=== PATIENT | female | born 1990 | race Caucasian/White ===

== ENCOUNTER 2019-06-21 11:18 | Observation (INO) ==
[2019-06-21 11:42] LABS: BASO# 0.02 X1000 (0.0-0.2); BASO% 0.4 % (0.0-0.8); EOS# 0.13 X1000 (0.0-0.7); EOS% 2.5 % (0.0-10.0); HEMATOCRIT 40.7 % (37.0-47.0); HEMOGLOBIN 14.5 g/dL (12.0-16.0); IMM GRAN# 0.01 X1000 (0.0-0.04); IMM GRAN% 0.2 % (0.0-0.5); LYMPH# 1.71 X1000 (1.2-3.4); LYMPH% 32.4 % (20.5-51.1); MCH 30.6 PG (27-31); MCHC 35.6 g/dL (33-37); MCV 85.9 FL (81-99); MONO# 0.51 X1000 (0.11-0.59); MONO% 9.7 % (1.7-9.3); MPV 9.5 FL (7.4-10.4); NEUT% 54.8 % (42.2-75.2); PLT 284 X1000 (130-400); RBC 4.74 XMIL (4.2-5.4); RDW 12.9 % (11.5-14.5); WBC 5.28 X1000 (4.8-10.8)
[2019-06-21 12:19] LABS: BILIRUBIN URINE NEGATIVE (NEGATIVE); BLOOD URINE NEGATIVE (NEGATIVE); CLARITY CLEAR (CLEAR); COLOR YELLOW; GLUCOSE URINE NEGATIVE (NEGATIVE); KETONE URINE NEGATIVE (NEGATIVE); LEUKOCYTES URINE NEGATIVE (NEGATIVE); NITRITE URINE NEGATIVE (NEGATIVE); PROTEIN URINE NEGATIVE (NEGATIVE); UROBILINOGEN URINE NORMAL
[2019-06-21 12:24] LABS: URINE EPITHELIAL CELLS >10 /HPF (<10); URINE SOURCE CLEAN CATCH; URINE WBC <10 /HPF (<10)
[2019-06-21 12:27] LABS: AGAP 12; ALBUMIN 4.5 g/dL (3.5-5.0); ALKALINE PHOSPHATASE 108 U/L (32-104); BUN 5 mg/dL (8-22); CALCIUM 8.9 mg/dL (8.8-10.2); CHLORIDE 102 mmol/L (98-107); COSMO 273; CREATININE 0.6 mg/dL (0.5-0.9); ESTIMATED GFR > 60; GLUCOSE 100 mg/dL (70-104); GOT 36 U/L (10-30); GPT 39 U/L (10-36); LIPASE 103 U/L (13-60); POTASSIUM 3.7 mmol/L (3.5-5.1); SODIUM 138 mmol/L (136-145); TCO2 24 mmol/L (25-35); TOTAL PROTEIN 7.5 g/dL (6.3-8.3)
[2019-06-21] MEDS ORDERED: ZOFRAN IV ONE (13:33)
[2019-06-21] MEDS ORDERED: TORADOL IV ONE (13:33)
--- NOTE | 2019-06-21 14:11 | Diag Imaging Result Doc PS360 ---
CT ABD/PELVIS W/IV CONT ONLY - 06/21/2019 INDICATION: RUQ pain COMPARISON: None FINDINGS: The lung bases are clear and the heart size is normal. There is splenomegaly. The spleen measures 13.1 x 7.3 cm. There is also a small simple cyst in the superior pole of the spleen. This measures about 1 cm. The liver, gallbladder, pancreas, adrenals, and kidneys are normal. No biliary dilation. No bowel obstruction or inflammation. There is a simple left adnexal cyst. This measures 4 x 3 cm. There is trace pelvic free fluid. Urinary bladder, uterus, right ovary, and rectum are normal. IMPRESSION: 1. Splenomegaly. 2. Left ovarian cyst. Trace pelvic free fluid. This exam was performed using automated exposure control, adjustment of mA or kV according to patient size, and/or use of iterative reconstruction technique Electronically signed by Kameron Jarrell 06/21/2019 2:08 PM
--- NOTE | 2019-06-21 14:15 | PROVIDER DOCUMENTATION ---
This chart was entered by Maria C Hickman Scribe, acting as scribe for Pili Andre CRNP. HPI-Abdominal Pain/GI Problem - General Chief Complaint: Abdominal Pain Stated Complaint: D/V Time Seen by Provider: 06/21/19 13:23 Source: patient Allergies/Adverse Reactions: Patient Allergies Allergy/AdvReac Type Severity Reaction Status Date / Time Penicillins Allergy ANAPHYLAXIS Verified 06/21/19 11:29 sumatriptan [From Imitrex] Allergy ANAPHYLAXIS Verified 06/21/19 11:29 Home Medications: Home Medication List Medication Instructions Recorded Confirmed Last Taken Type Paroxetine HCl 20 mg PO DAILY 06/21/19 06/21/19 Unknown History - History of Present Illness-ABD Nature of Presenting Problems: 28 yof presents to the ed with c/o RUQ and epigastric pain with n/v/d. pt sts onset was Tuesday and has been intermittent and has worsened today. pt has hx of ETOH abuse but is currently in rehab and clean Abdominal Pain Onset Location: reports: RUQ Pain Radiation: reports: epigastric Quality of Pain: reports: cramping Severity in ED: reports: moderate Onset/Duration: reports: 4 days ago Timing: reports: still present, intermittent, getting worse Activities at Onset: reports: light activity Exposure to sick contacts?: No Modifying Factors: improves with: analgesics Associated Symptoms: reports: diarrhea, nausea, vomiting. denies: back/neck p ain, chest pain, cough, fever/chills, headaches, shortness of breath Last BM: this afternoon Dark Stools Present?: reports: none noticed Rectal Bleeding: reports: none # of Diarrhea Episodes: 3 Rectal Pain: reports: none # of Vomiting Episodes: 2 Emesis Description: reports: other (bile) Bruising or Bleeding Gums?: No Similar Symptoms Previously?: Yes Recently seen or treated by another doctor?: No Review of Systems - Adult - REVIEW OF SYSTEMS - ADULT Constitutional: denies: chills, fever Eyes: reports: no symptoms reported Ears, Nose, Mouth & Throat: reports: no symptoms reported Cardiovascular: denies: chest pain, palpitations, syncope Respiratory: denies: shortness of breath, wheezing Gastrointestinal: reports: see HPI, abdominal pain, diarrhea, nausea, vomiting. denies: poor appetite Genitourinary: reports: no symptoms reported Musculoskeletal: denies: back pain, neck pain Integumentary: reports: no symptoms reported Neurological: denies: dizziness/vertigo, headache/migraines Psychiatric: reports: no symptoms reported Endocrine: reports: no symptoms reported Hematologic/Lymphatic: reports: no symptoms reported Allergic/Immunologic: reports: no symptoms reported All Other Systems: Reviewed and Negative Past History - Adult - PAST MEDICAL HISTORY-ADULT Review of Records: reports: Old Records Reviewed, Nursing Assessment Review, Medications Reviewed, Social history reviewed & non-contributory. Major Childhood Illnesses: reports: denies history Cardiovascular: reports: denies history Respiratory: reports: denies history Gastrointestinal: reports: denies history Obstetrical/Gynecological: reports: other (D/C) Genitourinary: reports: denies history Musculoskeletal: reports: denies history Neurological: reports: denies history Psychiatric: reports: anxiety Endocrine/Immune: reports: denies history Other Conditions: reports: denies history - PRIOR SURGERIES/PROCEDURES Surgical/Procedure History: reports: recent surgery - IMMUNIZATION STATUS Childhood Immunizations: See Nurse Assessment Flu Vaccine: See Nurse Assessment - FAMILY HISTORY Family History: reviewed, not pertinent - SOCIAL HISTORY Smoking: cigarettes, greater than 1 pack/day Provider spent 3-5 mins advising pt. on dangers of tobacco.: Discussed manners to quit use, and f/u contacts for add'l counseling. Substance Use: none presently/history of abuse (etoh) Living Situation: family Physical Exam-General - PHYSICAL EXAM-ADULT Initial Vital Signs Reviewed: Yes - CONSTITUTIONAL General Appearance: alert, mild distress - EYES Eyes: PERRL/EOMI, pink conjunctivae - HEAD, EARS, NOSE, MOUTH & THROAT HENMT: moist mucous membranes, normal ENT inspection - NECK Neck: non-tender, full range of motion, supple, normal inspection - RESPIRATORY Respiratory: chest non-tender, lungs clear, normal breath sounds - CARDIOVASCULAR Cardiovascular: normal peripheral pulses, regular rate, rhythm - GASTROINTESTINAL (ABDOMEN) Abdominal Exam: normal bowel sounds, soft, guarding, tenderness (severe RUQ and mild in epigastric), Mullen's sign, other (c/o nausea and requesting medication but eating chips and drinking a soda). negative: rigid, rebound - LYMPHATIC Lymphatic: no adenopathy - MUSCULOSKELETAL Back Exam: normal inspection, no CVA tenderness, no vertebral tenderness Extremity: normal range of motion, non-tender, normal gait, normal inspection - SKIN Integumentary: normal color, normal turgor, warm/dry - NEUROLOGIC Neurologic: grossly normal, no motor/sensory deficits - PSYCHIATRIC Psych/Mental Status: normal mood/affect, normal thought content, normal thought process, oriented x 3 Progress - PLAN OF CARE/RESULTS Progress/Plan/Lab Results: Vital Signs - 8 hr 06/21/19 11:22 06/21/19 12:38 Temperature 98.6 F 98.4 F Pulse Rate 99 H 104 H Respiratory Rate 18 18 Blood Pressure 121/79 107/73 O2 Sat by Pulse Oximetry 97 95 Bedside Urine ED: Urine Bedside Start: 06/21/19 11:25 Freq: ORDERED Status: Active Protocol: Activity Type Activity Date Activity User E-Sign Co-Sign Detail Recorded Client Recorded Date Recorded By Document 06/21/19 11:30 [id number] 06/21/19 11:30 [id number] 06/21/19 11:30 Point of Care [Bedside Point of Care] -Lot # [id number] - Results Negative -Control Line Visible? Yes Laboratory Results - last 24 hr 06/21/19 06/21/19 06/21/19 11:17 11:30 11:30 WBC 5.28 RBC 4.74 Hgb 14.5 Hct 40.7 MCV 85.9 MCH 30.6 MCHC 35.6 RDW Std Deviation 12.9 Plt Count 284 MPV 9.5 Immature Gran % (Auto) 0.2 Neut % (Auto) 54.8 Lymph % (Auto) 32.4 [place] % (Auto) 9.7 H Eos % (Auto) 2.5 Baso % (Auto) 0.4 Immature Gran # (Auto) 0.01 Neut # (Auto) 2.90 Lymph # (Auto) 1.71 [place] # (Auto) 0.51 Eos # (Auto) 0.13 Baso # (Auto) 0.02 Sodium Potassium Chloride Carbon Dioxide Anion Gap BUN Creatinine Estimated GFR/1.73 m2 BUN/Creatinine Ratio Glucose Calculated Osmolality Calcium Total Bilirubin AST ALT Alkaline Phosphatase Total Protein Albumin Globulin Albumin/Globulin Ratio Amylase 116 Lipase Urine Source CLEAN CATCH Urine Color YELLOW Urine Clarity CLEAR Urine pH 7.0 Ur Specific [place] 1.000 Urine Protein NEGATIVE Urine Ketones NEGATIVE Urine Blood NEGATIVE Urine Nitrite NEGATIVE Urine Bilirubin NEGATIVE Urine Urobilinogen NORMAL Urine Microscopic RBC Not Reportable Urine WBC NEGATIVE Urine Microscopic WBC <10 Ur Epithelial Cells >10 A Urine Glucose NEGATIVE Plasma/Serum Ethyl Alc 06/21/19 06/21/19 11:30 11:30 WBC RBC Hgb Hct MCV MCH MCHC RDW Std Deviation Plt Count MPV Immature Gran % (Auto) Neut % (Auto) Lymph % (Auto) [place] % (Auto) Eos % (Auto) Baso % (Auto) Immature Gran # (Auto) Neut # (Auto) Lymph # (Auto) [place] # (Auto) Eos # (Auto) Baso # (Auto) Sodium 138 Potassium 3.7 Chloride 102 Carbon Dioxide 24 L Anion Gap 12 BUN 5 L Creatinine 0.6 Estimated GFR/1.73 m2 > 60 BUN/Creatinine Ratio 8 Glucose 100 Calculated Osmolality 273 Calcium 8.9 Total Bilirubin 0.30 AST 36 H ALT 39 H Alkaline Phosphatase 108 H Total Protein 7.5 Albumin 4.5 Globulin 3.0 Albumin/Globulin Ratio 2.0 Amylase Lipase 103 H Urine Source Urine Color Urine Clarity Urine pH Ur Specific [place] Urine Protein Urine Ketones Urine Blood Urine Nitrite Urine Bilirubin Urine Urobilinogen Urine Microscopic RBC Urine WBC Urine Microscopic WBC Ur Epithelial Cells Urine Glucose Plasma/Serum Ethyl Alc Orders Category Date Time Status ED: Urine Bedside ORDERED Care 06/21/19 11:25 Active Saline Loc DIRECTED Care 06/21/19 11:25 Active NPO Diet 06/21/19 11:[address] ABD/PELVIS W/IV CONT ONLY [CT] Stat Exams 06/21/19 13:44 Ordered ALCOHOL BLOOD Stat Lab 06/21/19 11:30 Completed AMYLASE [CHEM] Stat Lab 06/21/19 11:30 Completed CBC WITH ELECTRONIC DIFF [HEME] Stat Lab 06/21/19 11:30 Completed COMPREHENSIVE METABOLIC PANEL [CHEM] Stat Lab 06/21/19 11:30 Completed LIPASE [CHEM] Stat Lab 06/21/19 11:[address] W/POSS RFLX CULT [URINALYSIS] Stat Lab 06/21/19 11:17 Completed Ketorolac [Toradol] Med 06/21/19 13:33 Discontinued 30 mg IV NOW ONE Ondansetron [Zofran] Med 06/21/19 13:33 Discontinued 4 mg IV NOW ONE Pt. given water and it causes her to vomit. Pt. reports RUQ pain after any food or drink. Discussed results and plan of care with patient. Patient agrees with plan and verbalizes understanding. Result Diagrams: 06/21/19 11:30 06/21/19 11:30 - REASSESSMENT Reassessment #1 Time Reassessed: 14:55 Status: improving - CT/MRI 1 CT Study: Abdomen, Pelvis ([facility] - [address], [address], [place] [address] [facility] - [address] [place] [address] Department of Imaging Patient: TERESA MEJIA Date: 06/21/19MR#: [id number] : 1990ADM Status: REG [facility]#: [id number] Age/Sex: 28/FRoom/Bed: Loc: P.ED Ordering Physician: Pili Andre Family Physician: None,PCP Reason for Procedure: RUQ pain Signed CT ABD/PELVIS W/IV CONT ONLY - 06/21/2019 INDICATION: RUQ pain COMPARISON: None FINDINGS: The lung bases are clear and the heart size is normal. There is splenomegaly. The spleen measures 13.1 x 7.3 cm. There is also a small simple cyst in the superior pole of the spleen. This measures about 1 cm. The liver, gallbladder, pancreas, adrenals, and kidneys are normal. No biliary dilation. No bowel obstruction or inflammation. There is a simple left adnexal cyst. This measures 4 x 3 cm. There is trace pelvic free fluid. Urinary bladder, uterus, right ovary, and rectum are normal. IMPRESSION: 1. Splenomegaly. 2. Left ovarian cyst. Trace pelvic free fluid. This exam was performed using automated exposure control, adjustment of mA or kV according to patient size, and/or use of iterative reconstruction technique Electronically signed by Kameron Jarrell 06/21/2019 2:08 PM 06/21/19 6060 Interpreting Physician: Kameron Jarrell MD Dictated Date/Time: 06/21/19 1406 cc: Pili Andre; None,PCP) CT Results: See note - ULTRASOUND (By Radiology) 1 US Study: Gallbladder (US GB < RUQ (LIMITED) - 06/21/2019 INDICATION: RUQ pain TECHNIQUE: Reece scale, color Doppler, and duplex evaluation of the abdomen was performed. COMPARISON: None FINDINGS: The liver appears normal in size and echotexture. No focal masses are appreciated. The IVC and aorta appear normal. The pancreas is unremarkable. The gallbladder is free of stones and sludge has a normal caliber wall. The common bile duct measures 2 mm. The portal vein is patent with hepatopetal flow. The right kidney appears normal. There is no hydronephrosis. IMPRESSION: Normal right upper quadrant abdominal ultrasound. Electronically signed by Lana Martinez 06/21/2019 2:56 PM 06/21/19 1456 Interpreting Physician: Lana Martinez MD Dictated Date/Time: 06/21/19 1455 cc: Pili Andre; None,PCP) US Results: Negative per tech - CONSULTS/PCP/HOSPITALIST Notification #1 *Consult/PCP/Hospitalist*: johny Green Dr. Time Discussed: 15:18 Reason/Comments: Admission Consult Disposition: Will see in ED, Admit Departure - Departure Date of Disposition Decision: 06/21/19 Time of Disposition Decision: 15:18 DIAGNOSIS: Tobacco abuse, Elevated LFTs Abdominal pain Qualifiers: Abdominal location: upper abdomen, unspecified Qualified Code(s): R10.10 - Upper abdominal pain, unspecified Intractable nausea and vomiting Qualifiers: Vomiting type: unspecified Qualified Code(s): R11.2 - Nausea with vomiting, unspecified Pancreatitis Qualifiers: Chronicity: acute Pancreatitis type: idiopathic Acute pancreatitis complication: unspecified Qualified Code(s): K85.00 - Idiopathic acute pancreatitis without necrosis or infection Disposition: ADMITTED INPATIENT 09 Certified Medical Emergency: Emergent Condition: Stable Additional Freetext Instructions: ED Follow Up Instructions: You have been treated by a care provider in the Emergency Department. These instructions are being provided to you so you can have an understanding of how to care for yourself upon discharge. Upon discharge from the Emergency Department, you are responsible for making arrangements for follow-up care by a physician of your choice. Take all prescribed medications as directed. Return to the Emergency Department immediately for any new or worsening symptoms. You may call the Physician Referral phone number at [phone] to obtain a list of Physicians who are taking new patients. Referrals and Follow-Ups: None,PCP [Primary Care Provider] - - Critical Care Note This patient required my direct & personal management of CC.: No Attestation - Physician/ DESTINEE Attestation Patient care was provided by Advanced Practice Provider:: Yes Advanced Practice Provider:: Pili Andre Advanced Practice Provider documentation review:: The Mid-level provider documentation, treatment plan and medical decision making was reviewed by the physician who agrees with all treatment and medical decision making by the MLP. The physician spent face to face time with patient:: No Advanced Practice Provider documentation review:: Supervising physician onsite and consulted in the evaluation and care of this patient. The physician did not have a face to face encounter with the patient. This chart was documented by the indicated scribe, (Maria C Hickman Scribe) and accurately reflects the services I performed and decisions made by me, Pili Andre CRNP, as attested by the provider's signature.
--- NOTE | 2019-06-21 14:59 | Diag Imaging Result Doc PS360 ---
US GB < RUQ (LIMITED) - 06/21/2019 INDICATION: RUQ pain TECHNIQUE: Reece scale, color Doppler, and duplex evaluation of the abdomen was performed. COMPARISON: None FINDINGS: The liver appears normal in size and echotexture. No focal masses are appreciated. The IVC and aorta appear normal. The pancreas is unremarkable. The gallbladder is free of stones and sludge has a normal caliber wall. The common bile duct measures 2 mm. The portal vein is patent with hepatopetal flow. The right kidney appears normal. There is no hydronephrosis. IMPRESSION: Normal right upper quadrant abdominal ultrasound. Electronically signed by Lana Martinez 06/21/2019 2:56 PM
--- NOTE | 2019-06-21 18:15 | HISTORY AND PHYSICAL ---
CHIEF COMPLAINT: Abdominal pain, diarrhea, nausea and vomiting. HISTORY OF PRESENT ILLNESS: This is a 28-year-old female who presents to the emergency room complaining of 5 days of intermittent right upper quadrant epigastric pain with nausea, vomiting, and diarrhea. She states this started Tuesday. It has increased. It started when she would eat solid food, she said particularly peanut butter and fried foods, but over the last 24 hours she has pain, nausea and vomiting with any oral intake. She denied any black or bloody vomitus or stools. PAST MEDICAL HISTORY: Anxiety and depression. Substance abuse. PAST SURGICAL HISTORY: D and C. SOCIAL HISTORY: She smokes a pack a day. She denies alcohol use. She does have a substance abuse problem. ALLERGIES: Penicillin, which causes anaphylaxis, and Imitrex causes anaphylaxis. HOME MEDICATIONS: A list will be obtained by the nursing staff and once verified, will be restarted as appropriate. REVIEW OF SYSTEMS: Discussed with the patient, with pertinent positives stated in the HPI. She denied any syncope, dizziness, chest pain, palpitations, any black or bloody vomitus or stools, shortness of breath, cough, fever, chills, any night sweats, any hematuria, dysuria, frequency or urgency. PHYSICAL EXAMINATION: GENERAL: This is a 28-year-old female who is sitting up on the stretcher in the emergency room. VITAL SIGNS: Blood pressure is 116/71 with a heart rate of 83, respirations 16, temperature is 98.5 degrees with room air saturations 100%. EYES: Pupils equal, round and reactive to light. EOMs are intact. Sclerae are anicteric. HEENT: Head is normocephalic, atraumatic. Mucous membranes are moist. NECK: Supple, with trachea midline. CARDIOVASCULAR: Regular rate and rhythm. S1 and S2 appreciated. She has no lower extremity edema. Calves are nontender. Peripheral pulses are palpable x4 extremities. PULMONARY: Breath sounds are clear, with no increased work of breathing noted. Chest rises and falls symmetric with respiration. GASTROINTESTINAL: Abdomen is soft, nondistended, with right upper quadrant and epigastric tenderness, with bowel sounds in all 4 quadrants. GENITOURINARY: She has no CVA nor suprapubic tenderness. NEUROLOGIC: She is alert and oriented x3. SKIN: Warm and dry. LABORATORY DATA: WBC is 5.2 with hemoglobin 14.5, hematocrit 40.7, platelets of 284,000. Sodium 138, potassium 3.7, BUN 5, creatinine 0.6, with a glucose of 100. AST is 36, ALT is 38 with alkaline phosphatase of 108. Amylase is 116, with lipase of 103. Urinalysis is essentially negative. Blood alcohol: None detected. DIAGNOSTIC DATA: 1. CT of the abdomen and pelvis revealed splenomegaly and a left ovarian cyst. 2. Abdominal ultrasound revealed normal right upper quadrant ultrasound. ASSESSMENT: 1. Pancreatitis. 2. Elevated liver function tests. 3. Nausea, vomiting, diarrhea. 4. Right upper quadrant pain. 5. Tobacco use and abuse. 6. Substance abuse. PLAN: The patient will be admitted to the medical/surgical floor. She will be placed on telemetry. We will keep her n.p.o. We will give IV hydration. We will use Toradol for pain. The patient is currently in a rehab facility for substance abuse. She wishes to stay away from narcotics. She did state Toradol helped the pain, so we will continue. We will give Zofran for nausea. We will repeat a CBC, CMP, amylase and lipase in the morning. We will keep up with intake and output. We will identify her home medications and continue as appropriate. Further treatments pending hospital course. Plan discussed with Dr. Golden. Dictated by FACUNDO Phillip for Lexx Golden MD cc: FACUNDO Phillip MD
[2019-06-21] MEDS: NS 1,000 ML IV SCH (19:00)
--- NOTE | 2019-06-21 19:26 | HISTORY AND PHYSICAL ---
Patient was seen and examined by myself. Full note dictated and discussed with nurse practitioner. HISTORY OF PRESENT ILLNESS/PLAN: Patient presented to the hospital noting that she has been having abdominal pain, nausea, vomiting, diarrhea for the past 4 days. Interestingly, the first thing she wanted when she got to the floor was food. Discussed with her that given the fact that she has come to the hospital because of nausea and vomiting, eating probably is not in her best interest at the moment. We will attempt to allow her to have clear liquids. She does not appear to have pancreatitis, although lipase is elevated. Her amylase is normal. CT and ultrasound of the abdomen both are normal. We will continue to follow. cc: Lexx Golden MD
[2019-06-21] MEDS ORDERED: NICODERM PATCH TD SCH (20:15)
[2019-06-21] MEDS: TORADOL IV PRN (21:22)
[2019-06-21] MEDS: ZOFRAN IV PRN (21:22)
[2019-06-22] MEDS: NS 1,000 ML IV SCH ×2 (02:42→14:27)
[2019-06-22 06:33] LABS: BASO# 0.01 X1000 (0.0-0.2); BASO% 0.2 % (0.0-0.8); EOS# 0.22 X1000 (0.0-0.7); EOS% 5.4 % (0.0-10.0); HEMATOCRIT 38.9 % (37.0-47.0); HEMOGLOBIN 13.4 g/dL (12.0-16.0); IMM GRAN# 0.01 X1000 (0.0-0.04); IMM GRAN% 0.2 % (0.0-0.5); LYMPH# 1.62 X1000 (1.2-3.4); LYMPH% 40.1 % (20.5-51.1); MCH 29.8 PG (27-31); MCHC 34.4 g/dL (33-37); MCV 86.6 FL (81-99); MONO# 0.61 X1000 (0.11-0.59); MONO% 15.1 % (1.7-9.3); MPV 10.1 FL (7.4-10.4); NEUT# 1.57 X1000 (1.4-6.5); PLT 265 X1000 (130-400); RBC 4.49 XMIL (4.2-5.4); WBC 4.04 X1000 (4.8-10.8)
[2019-06-22 06:52] LABS: AGAP 9; ALBUMIN 3.9 g/dL (3.5-5.0); ALKALINE PHOSPHATASE 95 U/L (32-104); BUN 4 mg/dL (8-22); CALCIUM 8.3 mg/dL (8.8-10.2); CHLORIDE 106 mmol/L (98-107); COSMO 278; CREATININE 0.6 mg/dL (0.5-0.9); ESTIMATED GFR > 60; GLUCOSE 94 mg/dL (70-104); GOT 40 U/L (10-30); GPT 43 U/L (10-36); POTASSIUM 3.7 mmol/L (3.5-5.1); SODIUM 141 mmol/L (136-145); TCO2 26 mmol/L (25-35); TOTAL PROTEIN 6.8 g/dL (6.3-8.3)
[2019-06-22 07:03] LABS: AMYLASE 160 U/L (20-200); LIPASE 154 U/L (13-60)
[2019-06-22] MEDS: TORADOL IV PRN ×2 (10:10→16:42)
[2019-06-22] MEDS: ZOFRAN IV PRN ×2 (10:10→14:27)
[2019-06-22 13:31] LABS: URINE SOURCE VOIDED
[2019-06-22 13:36] LABS: BILIRUBIN URINE NEGATIVE (NEGATIVE); BLOOD URINE NEGATIVE (NEGATIVE); CLARITY SL. CLOUDY (CLEAR); COLOR YELLOW; GLUCOSE URINE NEGATIVE (NEGATIVE); KETONE URINE NEGATIVE (NEGATIVE); LEUKOCYTES URINE 1+ (NEGATIVE); NITRITE URINE NEGATIVE (NEGATIVE); PROTEIN URINE TRACE mg/dL (NEGATIVE); SP GRAVITY URINE 1.005; UROBILINOGEN URINE 8 mg/dL
[2019-06-22 13:45] LABS: UR AMPHETAMINES QUAL NONE DETECTED (NONE DETECT); UR BARBITUATES QUAL NONE DETECTED (NONE DETECT); UR BENZODIAZEPIN QUAL NONE DETECTED (NONE DETECT); UR CANNABINOIDS QUAL NONE DETECTED (NONE DETECT); UR COCAINE QUAL NONE DETECTED (NONE DETECT); UR METHADONE QUAL NONE DETECTED (NONE DETECT); UR METHAMPHETAMINE QUAL NONE DETECTED (NONE DETECT); UR OPIATES QUAL NONE DETECTED (NONE DETECT); UR OXYCODONE QUAL NONE DETECTED (NONE DETECT); UR PCP QUAL NONE DETECTED (NONE DETECT); UR PROPOXYPHENE QUAL NONE DETECTED (NONE DETECT); UR TCA QUAL NONE DETECTED (NONE DETECT)
--- NOTE | 2019-06-22 16:17 | PROGRESS NOTE ---
DATE: 06/22/2019 SUBJECTIVE: Patient notes that her abdominal pain is improving. She is still a bit nauseated, still very tired and fatigued. PHYSICAL EXAMINATION: Temperature 97.8, pulse 84, respiratory rate 18, BP 113/63.General: Patient is awake, alert, currently in no distress. Pleasant to talk with. HEENT: Normocephalic. Neck: Supple. Cardiovascular: Regular rate. Chest: Clear, nonlabored, no crackles. Abdomen: Soft, minimally tender. Extremities: Moves all extremities. Neurologic: No changes. ASSESSMENT: 1. Abdominal pain. 2. Nausea vomiting, likely viral gastroenteritis. 3. Fatigue. 4. Chronic tobacco abuse. 5. History of substance abuse. PLAN: We will continue patient in the hospital. Continue to follow. Advance her diet. Hopefully, home in 1 to 2 days if her symptoms continue to improve. cc: Lexx Golden MD
[2019-06-22 17:35] VITALS: BP 119/75
== END 2019-06-22 18:16 ==
LOC: P.ED 11:18 → INTOOBSV 11:19 → P.MEDSURG 11:19
PROVIDERS: ATTEND Family Medicine
CPT/HCPCS: 74177; 76705; 80053; 80104; 80301; 80305; 80307; 80320; 81001; 81003; 81025; 82055; 82150; 83690; 85025; 96374; 99285; A9270; G0431; G0434; G0477; G0480; G6040; J1885; J2405; J7030; Q9967